=== PATIENT | male | born 1965 | race Caucasian/White ===

== ENCOUNTER 2016-12-10 14:36 | Emergency (ER) | payer BC ==
[~2016-12-10] VITALS: Ht 190.5 cm; Wt 119.9 kg
[~2016-12-10 14:36] MED LIST: CLC100 PO; FLX10 PO; OXYC-57 PO
[2016-12-10 14:42] VITALS: TEMP 36.9; Ht 190.5 cm; Wt 119.9 kg
[2016-12-10] MEDS ORDERED: MECLIZINE HCL 25 MG TAB PO STA (15:40)
[2016-12-10] MEDS ORDERED: INDO25CA14 PO (15:55)
[2016-12-10] MEDS ORDERED: CITA40TA4 PO (15:55)
[2016-12-10 16:28] LABS: ALT/SGPT 34 U/L (12-78); BLOOD UREA NITROGEN 12 mg/dl (7-18); BUN/CREATININE RATIO 15.1 (10-20); CALCIUM 9.6 mg/dl (8.5-10.1); CARBON DIOXIDE 27 mmol/L (21-32); CHLORIDE 102 mmol/L (98-107); GLUCOSE 129 mg/dl (70-99); POTASSIUM 3.7 mmol/L (3.5-5.1); SODIUM 140 mmol/L (136-145)
[2016-12-10 16:36] LABS: BASO % 0.3 %; BASO ABS # 0.02 K/uL (0-0.2); COMPLETE YES; EOS % 0.8 %; HEMATOCRIT 40.9 % (42-52); IG% 0.3 %; LYMPH % 26.2 %; LYMPH ABS # 1.63 K/uL (1.2-3.4); MEAN CELL VOLUME 85.6 fL (80-100); MEAN CORPUSCULAR HEMOGLOBIN 29.3 pg (25-34); MEAN CORPUSCULAR HGB CONC 34.2 g/dl (32-36); MEAN PLATELET VOLUME 10.5 fL (7.4-10.4); MONO % 4.8 %; NEUT % 67.6 %; PLATELET COUNT 224 K/uL (130-400); RED BLOOD COUNT 4.78 M/uL (4.7-6.1); WHITE BLOOD COUNT 6.21 K/uL (4.8-10.8)
[2016-12-10 16:38] LABS: ALB/GLOB RATIO 1.1 (0.9-2); ALKALINE PHOSPHATASE 60 U/L (45-117); AST/SGOT 20 U/L (15-37)
[2016-12-10] MEDS ORDERED: LORAZEPAM 1 MG TAB SL STA (17:01)
--- NOTE | 2016-12-10 17:12 | DIAGNOSTIC IMAGING REPORT ---
HEAD CT NONCONTRAST CT DOSE: 614.27 mGy.cm HISTORY: Mental status change dizziness TECHNIQUE: Multiaxial CT images of the head were performed without the use of intravenous contrast. Comparison: None. Findings: The paranasal sinuses and mastoid air cells are clear. The calvarium and skull base are intact. The ventricles and sulci are within normal limits. There is no mass, hematoma, midline shift, or acute infarct. Impression: No acute intracranial abnormality. Electronically signed by: Jose Musa M.D. 12/10/2016 5:10 PM Dictated Date/Time: 12/10/2016 5:08 PM
[2016-12-10 17:30] VITALS: O2SAT 95
[2016-12-10] MEDS ORDERED: MECL1TAB42 PO (18:39)
--- NOTE | 2016-12-10 18:40 | EMERGENCY ROOM VISIT NOTE ---
History First contact with patient: 15:29 Chief Complaint: DIZZY Stated Complaint: DIZZINESS,NAUSEA Nursing Triage Summary: Triage Note: Pt ambulatory to triage. Pt reports since waking up this am he has felt dizzy. History of Present Illness The patient is a 51 year old male who presents to the Emergency Room with complaints of dizziness. The patient states that after waking up this morning, he began to feel dizzy. He states his symptoms have been intermittent. They have been worse when he is standing or walking. He reports that he feels like the room is spinning and he has had nausea associated with this. He has not had any vomiting. The patient states that his blood pressure was elevated at home. He does have a history of hypertension, but does state that his blood pressure is "borderline." The patient reports a history of a neck surgery several years ago but denies any neck pain. He denies any headache, chest pain , shortness of breath. He denies any previous episodes of vertigo. The patient has not taken any medications for his symptoms. He denies any recent illnesses or fevers/chills. He denies any numbness, weakness or difficulty walking. Review of Systems A complete 10-point Review of Systems was discussed with the patient, with pertinent positives and negatives listed in the History of Present Illness. All remaining Review of Systems questions can be considered negative unless otherwise specified. Social History Smoking Status: Never Smoker Current/Historical Medications Scheduled Citalopram (Citalopram Hydrobromide), 40 MG PO DAILY Scheduled PRN Indomethacin (Indomethacin), 50 MG PO DAILY PRN for GOUT Meclizine Hcl (Meclizine Hcl), 1 TAB PO TID PRN for Dizziness or Vertigo Allergies Coded Allergies: Unclassified Drugs (Verified Allergy, Unknown, "VICRYL SUTURES" RXN = NON- HEALING WOUND, 09/05/10) Physical Exam Vital Signs Date Time Temp Pulse Resp B/P Pulse Ox O2 Delivery O2 Flow Rate FiO2 12/10/16 18:48 74 16 143/88 12/10/16 17:30 84 16 131/90 95 12/10/16 15:30 77 12 151/98 97 Room Air 12/10/16 14:42 36.9 66 18 184/121 95 Room Air Physical Exam VITALS: Vitals are noted on the nurse's note and reviewed by myself. Vital signs stable. GENERAL: This is a 51-year-old male, in no acute distress, nondiaphoretic, well- developed well-nourished. SKIN: The skin was without rashes. HEAD: Normocephalic atraumatic. EARS: External auditory canals clear, tympanic membranes pearly [place] without erythema or effusion bilaterally. EYES: Pupils equal round and reactive to light and accommodation. Conjunctivae without injection, sclerae without icterus. Extraocular movements intact. MOUTH: Mucous membranes moist. Tonsils are not enlarged. Pharynx without erythema or exudate. NECK: Supple without nuchal rigidity. No lymphadenopathy. HEART: Regular rate and rhythm without murmurs gallops or rubs. LUNGS: Clear to auscultation bilaterally without wheezes, rales or rhonchi. MUSCULOSKELETAL: Full range of motion throughout. Normal gait. Strength 5/5 throughout. NEURO: Patient was alert and oriented to person place and time. Normal sensation to light and sharp touch. Deep tendon reflexes 2+ throughout. No focal neurological deficits. Normal finger to nose testing. Normal rapid alternating movements. Negative Romberg and pronator drift. Medical Decision & Procedures ER Provider Diagnostic Interpretation: HEAD CT NONCONTRAST CT DOSE: 614.27 mGy.cm HISTORY: Mental status change dizziness TECHNIQUE: Multiaxial CT images of the head were performed without the use of intravenous contrast. Comparison: None. Findings: The paranasal sinuses and mastoid air cells are clear. The calvarium and skull base are intact. The ventricles and sulci are within normal limits. There is no mass, hematoma, midline shift, or acute infarct. Impression: No acute intracranial abnormality. Laboratory Results 12/10/16 16:00 Red Blood Count 4.78, Mean Corpuscular Volume 85.6, Mean Corpuscular Hemoglobin 29.3, Mean Corpuscular Hemoglobin Concent 34.2, Mean Platelet Volume 10.5, Neutrophils (%) (Auto) 67.6, Lymphocytes (%) (Auto) 26.2, Monocytes (%) (Auto) 4.8, Eosinophils (%) (Auto) 0.8, Basophils (%) (Auto) 0.3, Neutrophils # (Auto) 4.19, Lymphocytes # (Auto) 1.63, Monocytes # (Auto) 0.30, Eosinophils # (Auto) 0.05, Basophils # (Auto) 0.02 12/10/16 16:00 Test 3/20/17 16:00 White Blood Count 6.21 K/uL (4.8-10.8) Red Blood Count 4.78 M/uL (4.7-6.1) Hemoglobin 14.0 g/dL (14.0-18.0) Hematocrit 40.9 % (42-52) Mean Corpuscular Volume 85.6 fL (80-100) Mean Corpuscular Hemoglobin 29.3 pg (25-34) Mean Corpuscular Hemoglobin Concent 34.2 g/dl (32-36) Platelet Count 224 K/uL (130-400) Mean Platelet Volume 10.5 fL (7.4-10.4) Neutrophils (%) (Auto) 67.6 % Lymphocytes (%) (Auto) 26.2 % Monocytes (%) (Auto) 4.8 % Eosinophils (%) (Auto) 0.8 % Basophils (%) (Auto) 0.3 % Neutrophils # (Auto) 4.19 K/uL (1.4-6.5) Lymphocytes # (Auto) 1.63 K/uL (1.2-3.4) Monocytes # (Auto) 0.30 K/uL (0.11-0.59) Eosinophils # (Auto) 0.05 K/uL (0-0.5) Basophils # (Auto) 0.02 K/uL (0-0.2) RDW Standard Deviation 43.3 fL (36.4-46.3) RDW Coefficient of Variation 13.8 % (11.5-14.5) Immature Granulocyte % (Auto) 0.3 % Immature Granulocyte # (Auto) 0.02 K/uL (0.00-0.02) Anion Gap 11.0 mmol/L (3-11) Est Creatinine Clear Calc Drug Dose 154.2 ml/min Estimated GFR () 120.7 Estimated GFR (Non- 104.2 BUN/Creatinine Ratio 15.1 (10-20) Calcium Level 9.6 mg/dl (8.5-10.1) Total Bilirubin 0.8 mg/dl (0.2-1) Aspartate Amino Transf (AST/SGOT) 20 U/L (15-37) Alanine Aminotransferase (ALT/SGPT) 34 U/L (12-78) Alkaline Phosphatase 60 U/L (45-117) Troponin I < 0.015 ng/ml (0-0.045) Total Protein 7.7 gm/dl (6.4-8.2) Albumin 4.1 gm/dl (3.4-5.0) Globulin 3.6 gm/dl (2.5-4.0) Albumin/Globulin Ratio 1.1 (0.9-2) Thyroid Stimulating Hormone (TSH) 1.150 uIu/ml (0.300-4.500) Medications Administered Medications (Trade) Dose Ordered Sig/Aashish Route Start Time Stop Time Status Last Admin Dose Admin Meclizine HCl (Antivert Tab) 25 mg NOW STAT PO 12/10/16 15:40 12/10/16 15:43 DC 12/10/16 16:01 25 MG Lorazepam (Ativan Tab) 1 mg NOW STAT SL 12/10/16 17:01 12/10/16 17:02 DC 12/10/16 17:30 1 MG ECG Indication: other Rate (beats per minute): 73 Rhythm: normal sinus Findings: no acute ischemic change, no ectopy Change: no significant change Medical Decision Differential diagnosis includes labyrinthitis, BPPV, cerebellar lesion, CVA, among others. The patient was evaluated as above. Labs were drawn and IV access was obtained. Imaging studies were performed and read by radiology as above. The patient was medicated with 25 mg meclizine and 1 mg Ativan. The patient was reassessed multiple times during their stay in the emergency department and remained in stable condition. The patient is a 51-year-old male who presents today complaining of dizziness. He neurological exam was completely unremarkable. I do not suspect a central cause of vertigo. Labs revealed no leukocytosis, anemia or concerning electrolyte abnormalities. EKG was unremarkable. CT of the head was unremarkable. The patient was treated with meclizine with little relief. He did report some relief with the Ativan. The patient was able to walk without any balance issues. The patient was concerned that his dizziness would return and I did offer him admission for further evaluation, but he preferred to be discharged home. The patient was instructed that he should follow-up closely with his primary care provider. He'll return here for worsening of his symptoms. Based on the patient's presentation, lab results, and imaging studies, I feel the patient is stable for outpatient treatment. The patient's case was reviewed with Dr. Fernandez, ED attending physician, who agreed with my assessment and treatment plan. Discharge instructions were reviewed with the patient. The patient verbalized understanding of my assessment and treatment plan and was discharged home in good condition. Impression Primary Impression: Vertigo Departure Information Dispostion Home / Self-Care Condition GOOD Prescriptions Meclizine Hcl (MECLIZINE HCL) 25 Mg Tab 1 TAB PO TID Y for Dizziness or Vertigo for 10 Days, #30 TAB Prov: Maggy Willard .SANDI 12/10/16 Referrals Jesse Baker M.D. (PCP) Patient Instructions My [facility] Additional Instructions Take the meclizine 3 times daily as needed for dizziness. Rest and stay hydrated. No work until cleared by your primary care provider. Call your primary care provider tomorrow to schedule follow-up appointment within 48 hours. Return to the emergency department with worsening dizziness, headache, neck pain , fevers or any other new/concerning symptoms.
[2016-12-10 18:48] VITALS: BP 143/88; PULSE 74
[2017-02-25] MEDS ORDERED: MECL1TAB42 PO (10:05)
[2017-02-25] MEDS ORDERED: ALLO100T PO (10:05)
== END 2016-12-10 18:51 | disposition home or self-care (01) ==
LOC: C.EDB 14:37
DX: R42 Dizziness and giddiness (principal); I10 Essential (primary) hypertension; Z79.899 Other long term (current) drug therapy

== ENCOUNTER 2017-04-09 05:52 | Inpatient (IN) | payer BC ==
--- NOTE | 2017-02-25 10:37 | PAT Medication Instructions ---
Service Date Feb 25, 2017. Current Home Medication List Allopurinol (Zyloprim), 100 MG PO QAM Citalopram (Citalopram Hydrobromide), 40 MG PO QAM Meclizine Hcl (Meclizine Hcl), 1 TAB PO TID PRN for VERTIGO Medication Instructions For Your Scheduled Surgery - Take the following medications the morning of surgery with a sip of water OTHERWISE NOTHING TO EAT OR DRINK AFTER MIDNIGHT: Allopurinol (Zyloprim), 100 MG PO QAM Citalopram (Citalopram Hydrobromide), 40 MG PO QAM Meclizine Hcl (Meclizine Hcl), 1 TAB PO TID PRN for VERTIGO - Take the following medications as scheduled the night before surgery: Meclizine Hcl (Meclizine Hcl), 1 TAB PO TID PRN for VERTIGO If you have any questions please call us at [phone] or [phone] or [phone]
--- NOTE | 2017-02-25 11:10 | DIAGNOSTIC IMAGING REPORT ---
CHEST PREADMISSION(PA/LAT) CLINICAL HISTORY: Preoperative chest COMPARISON STUDY: No previous studies for comparison. FINDINGS: The cardiac and mediastinal contours are normal. There is no evidence of focal pulmonary consolidation. There is no evidence of failure. No pleural effusions are visualized.[ IMPRESSION: No active disease in the chest. Electronically signed by: Seng Garcia M.D. 02/25/2017 11:09 AM Dictated Date/Time: 02/25/2017 11:09 AM
[2017-02-25 12:03] LABS: URINE APPEARANCE CLEAR (CLEAR); URINE BILIRUBIN NEG (NEG); URINE COLOR DK YELLOW; URINE NITRITE NEG (NEG); URINE SPECIFIC GRAVITY 1.026 (1.000-1.030); UROBILINOGEN NEG (NEG); ZZUR CULT IF INDIC CLEAN CATCH NO
[2017-02-25 12:06] LABS: BASO % 0.2 %; BASO ABS # 0.01 K/uL (0-0.2); COMPLETE YES; EOS % 0.9 %; LYMPH % 27.8 %; LYMPH ABS # 1.26 K/uL (1.2-3.4); MEAN CELL VOLUME 88.2 fL (80-100); MEAN CORPUSCULAR HEMOGLOBIN 28.4 pg (25-34); MEAN CORPUSCULAR HGB CONC 32.1 g/dl (32-36); MEAN PLATELET VOLUME 10.4 fL (7.4-10.4); MONO % 4.8 %; NEUT % 66.3 %; PLATELET COUNT 202 K/uL (130-400); RED BLOOD COUNT 4.76 M/uL (4.7-6.1); WHITE BLOOD COUNT 4.54 K/uL (4.8-10.8)
[2017-02-25 12:14] LABS: MANUAL MICROSCOPIC REQUIRED? NO; REVIEW REQ? NO
[2017-02-25 12:18] LABS: ESTIMATED AVERAGE GLUCOSE 134 mg/dl; HA1C FLAG Normal (Normal)
[2017-02-25 12:20] LABS: BLOOD UREA NITROGEN 14 mg/dl (7-18); BUN/CREATININE RATIO 15.9 (10-20); CALCIUM 8.9 mg/dl (8.5-10.1); CARBON DIOXIDE 33 mmol/L (21-32); CHLORIDE 103 mmol/L (98-107); CREATININE 0.89 mg/dl (0.60-1.40); GLUCOSE 164 mg/dl (70-99); POTASSIUM 3.9 mmol/L (3.5-5.1); SODIUM 141 mmol/L (136-145)
[2017-03-06 16:08] VITALS: BMI 31.0
[2017-04-09] VITALS (8 sets, daily range): BP systolic 115–133; BP diastolic 61–84; PULSE 61–74; TEMP 36.5–37.3; O2SAT 92–98; Ht 190.5 cm; Wt 115.1 kg
[~2017-04-09] VITALS: Ht 190.5 cm; Wt 115.1 kg
[~2017-04-09 05:52] MED LIST changes: +ALLO100T PO; +CITA40TA4 PO; -CLC100 PO; -FLX10 PO; +MECL1TAB42 PO; -OXYC-57 PO
[2017-04-09] MEDS ORDERED: ROPIVACAINE 5MG/ML 30 ML 150 MG, BUPIVACAINE/EPINEPHR 0.5% MPF 30 ML, KETOROLAC TROMETH... INFIL SCH ×7 (06:00)
[2017-04-09] MEDS ORDERED: DEXAMETHASONE 4 MG TAB PO SCH (06:00)
[2017-04-09] MEDS ORDERED: METOCLOPRAMIDE HCL 10 MG TAB PO SCH (06:00)
[2017-04-09] MEDS ORDERED: LACTATED RINGER'S 1000ML 1,000 ML IV SCH (06:00)
[2017-04-09] MEDS ORDERED: FAMOTIDINE 20 MG TAB PO SCH (06:00)
[2017-04-09] MEDS ORDERED: CEFAZOLIN 2000 MG/60 ML D5W 60 ML IV SCH (06:00)
[2017-04-09] MEDS ORDERED: GABAPENTIN 300 MG CAP PO SCH (06:00)
[2017-04-09] MEDS ORDERED: LACTATED RINGER'S 1000ML 500 ML IV ONE (06:00)
[2017-04-09] MEDS ORDERED: ACETAMINOPHEN 500 MG TAB PO SCH (06:00)
[2017-04-09] MEDS ORDERED: LACTATED RINGER'S 1000ML IV SCH (06:00)
[2017-04-09] MEDS ORDERED: CeleBREX 200 MG CAP PO SCH (06:00)
[2017-04-09] MEDS: TRANEXAMIC ACID INJ 1,000 MG in SODIUM CHLORIDE 0.9% 100ML 100 ML IV SCH ×2 (06:30→07:14)
[2017-04-09] MEDS ORDERED: LIDOCAINE HCL 2% 2 ML VIAL (20MG/ML) ONE (06:49)
[2017-04-09] MEDS ORDERED: PROPOFOL IV EMULSION 10 MG/ML 20 ML VIAL IV ONE ×2 (06:49→08:58)
[2017-04-09] MEDS ORDERED: FENTANYL CITRATE INJ 50 MCG/1 ML 2 ML VIAL ONE (06:50)
[2017-04-09] MEDS ORDERED: MIDAZOLAM HCL 1 MG/ML 2ML VIAL ONE ×2 (06:50→08:31)
--- NOTE | 2017-04-09 06:51 | History & Physical Bridge Note ---
H&P Re-Evaluation Bridge Note: I have examined the patient, reviewed the History & Physical and in the interval since the performance of the History & Physical I have noted the following changes of clinical significance: No changes noted
[2017-04-09 06:59] LABS: INR 0.9 (0.9-1.1); PROTHROMBIN TIME (PATIENT) 9.8 SECONDS (9.0-12.0)
[2017-04-09] MEDS ORDERED: BACITRACIN 50000 UNIT VIAL ONE (07:11)
[2017-04-09] MEDS ORDERED: POVIDONE-IODINE OP SOLN 30 ML BTL ONE (07:11)
[2017-04-09] MEDS ORDERED: ORTHO JOINT ANESTHETIC ONE (07:11)
--- NOTE | 2017-04-09 07:14 | History and Physical ---
History & Physical Date of Service Apr 09, 2017. History & Physical Chief Complaint right knee pain History of Present Illness Mr Garcia is a 51 year old male who complains of right knee pain. He presents with pain on the right side. He states that the symptoms have been chronic non- traumatic. The symptoms occur constantly with intermittent worsening. The problem is fluctuating. Currently the patient states that the symptoms are moderate. The pain is described as aching and throbbing. The symptoms occur intermittently. The symptoms are aggravated by daily activities. Gerard states that the symptoms are relieved by no specific activity. In addition to right knee pain the patient is also experiencing crepitus, decreased mobility and limping. The patient has had a previous x-ray. Prior NSAIDs include Has taken Mobic in the past. Patient has had arthroscopic surgery. 04-07-15 Dr. Alberts performed Arthroscopy, right knee Partial medial meniscectomy, Partial lateral meniscectomy, Chondroplasty medial femoral condyle and patellofemoral joint. Has had previous cortisone injection without relief. Past Medical/Surgical History Past Medical History 1. Anxiety 2. Sleep Apnea 3. Gout Past Surgical History 1. right knee scope 2. achilles tendon 3. ulnar nerve transposition 4. back surgery Additional History Hepatic Disease: No Endocrine Disorder: No Hypertension: No Heart Disease: No Bleeding Tendencies: No Allergies Coded Allergies: NO KNOWN DRUG ALLERGIES (Verified Allergy, Unknown, NKDA, 02/25/17) Unclassified Drugs (Verified Allergy, Unknown, "VICRYL SUTURES" RXN = NON- HEALING WOUND, 02/25/17) Home Medications Scheduled Allopurinol (Zyloprim), 100 MG PO QAM Citalopram (Citalopram Hydrobromide), 40 MG PO QAM Scheduled PRN Meclizine Hcl (Meclizine Hcl), 1 TAB PO TID PRN for VERTIGO Physical Examination Skin: warm/dry, no rash Eyes: normal inspection, EOMI, sclerae normal ENT: normal ENT inspection, pharynx normal Head: normocephalic, atraumatic Neck: supple, no adenopathy, trachea midline Respiratory/Chest: lungs clear, normal breath sounds, no respiratory distress Cardiovascular: regular rate, rhythm, no edema, no murmur Abdomen / GI: normal bowel sounds, non tender Addiitonal Comments: Right Knee Ankle ROM R * Active ROM - Factors: normal, Description: active pain free range of motion. Passive ROM - Factors: normal, Description: passive pain free range of motion. Hip ROM R * Active ROM - Factors: normal, Description: active pain free range of motion. Passive ROM - Factors: normal, Description: passive pain free range of motion. Knee ROM R * Active ROM - Flexion: 100 degrees, Extension: 5 degrees, Factors: pain, Description: Active painful ROM. Strength LE Normal Strength Description - Normal lower extremity: Bilateral. Knee * Inspection - Gait: Limp. Alignment - Right: varus, Clinical. Ecchymosis - Right: negative. Effusion - Right: mild. Skin - Right: surgical scars. Swelling - Right: mild. Maximum tenderness - Right: Medial Joint Line. Patella exam - Crepitation - Right: mild. Patella position - Right: neutral. Knee Normal Inspection - Atrophy - Right: Absent. Patella exam - Apprehension - Right: Negative. Q-angle - Right: Normal. Posterior drawer - Right: Negative. Anterior drawer - Right: Negative. Valgus stress - Right: Negative. Varus stress - Right: Negative. Extensor lag - Right: Normal. Neurovascular LE Normal Neurovascular examination including reflexes, sensation , and pulses is within normal limits. Right Knee Xray: Xrays reviewed of the right knee showing findings consistent with degenerative joint disease including joint space narrowing, subchondral sclerosis and peripheral osteophyte formation. no acute bony pathology, overall varus alignment. Impression: degenerative joint disease of the right knee with no acute bony pathology noted. Diagnosis Right Knee DJD -Further care discussed with patient and at this point in time has failed conservative measures and would like to proceed with a right total knee replacement. Plan on discharge will be home with home health physical therapy. DVT prophalaxis with TEDs, SCDs and will also place on aspirin 81 mg p.o. b.i.d. for a month postop. Patient will have follow up appointment in our office two weeks post op for staple/suture removal and re-evaluation. Patient otherwise has no other questions or concerns.
[2017-04-09] MEDS ORDERED: BUPIVACAINE 0.5 % 5 MG/1 ML PF 10ML VIAL ONE (07:15)
[2017-04-09] MEDS ORDERED: BUPIVACAINE 0.25% 30 ML VIAL ONE (07:15)
[2017-04-09] MEDS ORDERED: PHENYLEPHRINE 100MCG/ML 5ML SYR IV PRN (08:30)
[2017-04-09] MEDS ORDERED: ONDANSETRON INJ 2 MG/ML 2 ML VIAL IV PRN ×2 (08:30→10:15)
[2017-04-09] MEDS ORDERED: HYDROmorphone INJ 2 MG/ML SYR/VIAL IV PRN (08:30)
[2017-04-09] MEDS ORDERED: ATROPINE SULFATE 0.1 MG/ML 5ML SYR IV PRN (08:30)
[2017-04-09] MEDS ORDERED: KETOROLAC TROMETHAMINE 30 MG/ML VIAL IV. PRN ×2 (08:30→10:15)
[2017-04-09] MEDS ORDERED: EpHEDrine SULFATE INJ 50 MG/ML AMP IV PRN (08:30)
--- NOTE | 2017-04-09 09:26 | [facility] Operative Report ---
Operative Report Operative Date Apr 09, 2017. Pre-Operative Diagnosis Right Knee Degenerative Joint Disease Post-Operative Diagnosis Right Knee Degenerative Joint Disease Procedure(s) Performed Right Total Knee Arthroplasty, Cemented Wade nephew journey to en bloc size 8 femur A tibia 13 poly-[address] Alberts Website Developer Surgeon(s) Jimmy Ruff PA-C Findings Severe end-stage DJD right knee Specimens A: Right Knee Bone and Tissue Complication(s) None Disposition Recovery Room / PACU Indications Severe end-stage DJD not responsive to conservative management including physical therapy bracing and injections. Description of Procedure After proper prepping and draping of the Right lower extremity anterior midline incision was made over the region of the extensor extensor mechanism after meticulous hemostasis was obtained and maintained in subcutaneous tissues a medial parapatellar incision was made The patella was subluxed lateralward the medial lateral gutter were cleaned from any hypertrophic synovitis and scar tissue of the distal femoral block was placed and the distal femoral osteotomy cut was made subsequently the chamfers anterior and posterior osteotomy cuts were made utilizing the 4-in-1 block the tibia was subsequently subluxed anteriorward medial and ateral meniscal remnants were excised in their entirety remnants of the anterior and posterior cruciate ligaments were excised in their entirety excellent exposure of the proximal tibia was obtained the tibial osteotomy guide was placed on the proximal tibial osteotomy cut was made once again the knee was irrigated with copious amounts of sterile saline solution the patella was subsequently everted lateralward thickened scar tissue around the patella was removed the patella was subsequently cut utilizing a freehand technique and was drilled prepared for final preparation and placement of patella socially flexion-extension gaps were checked and the equal and symmetric trials were placed to the appropriate femoral and tibial trials with poly-spacer being placed for equal flexion and extension gaps and full range of motion including extension to 0 and flexion to 140 the trial components after having been taken to recovery range of motion was subsequently removed meticulous hemostasis was obtained and maintained subsequently a knee block injection of joint cocktail including ropivacaine 0.5% 150 mg. Bupivacaine 0.5 % epinephrine 1-200,030 mL's toradol 30 mg dexamethasone 4 mg ketamine 10 mg clonidine 100 micrograms normal saline solution 30 mg was infiltrated into the soft tissues of the posterior knee medial lateral gutters and periosteal synovium special attention was paid to protect neurovascular structures at all times subsequently trial components having been removed the knee was irrigated with sterile saline solution. debris was removed the proximal tibia was subsequently prepared and was made ready for the placement of the tibial component tibial component was also cemented and tamped into position the femoral component was subsequently placed and cemented in the position the patellar component was subsequently cemented in position because hemostasis once again obtained and maintained wound having been thoroughly irrigated with debridement and debridement lavage was performed as well as a medial parapatellar incision closed with #1 Vicryl in interrupted fashion subcutaneous was closed with #2 Vicryl skin was closed with skin clips. PA-C was necessary for prepping and drapping as well as wound closure of deep fascia Sub cutaneous tissue and skin and was necessary for the case. A sterile compressive dressing was placed patient was taken to recovery in stable condition of report dictated by Aristeo I attest to the content of the Intraoperative Record and any orders documented therein. Any exceptions are noted below. I attest to the content of the Intraoperative Record and any orders documented therein. Any exceptions are noted below.
[2017-04-09] MEDS ORDERED: BISACODYL 10 MG SUPP PR PRN (10:15)
[2017-04-09] MEDS ORDERED: MoRPHine SULFATE 2 MG/ML CARP IV PRN (10:15)
[2017-04-09] MEDS ORDERED: ALUMINUM/MAGNESIUM/SIMETH (MAALOX MAX) 30 ML UDC PO PRN (10:15)
[2017-04-09] MEDS ORDERED: MAGNESIUM HYDROXIDE SUSP 30 ML UDC PO PRN (10:15)
[2017-04-09] MEDS ORDERED: TAMSULOSIN HCL 0.4 MG CAP PO PRN (10:15)
[2017-04-09] MEDS ORDERED: OXYCODONE HCL IR 5 MG TAB (IMMEDIATE RELEASE) PO PRN (10:15)
--- NOTE | 2017-04-09 10:37 | DIAGNOSTIC IMAGING REPORT ---
RIGHT KNEE 1 OR 2 VIEWS ROUTINE CLINICAL HISTORY: 51 years-old Male presenting with postsurgical right knee. TECHNIQUE: Frontal and lateral views of the right knee were obtained. COMPARISON: None. FINDINGS: Total right knee arthroplasty with patellar resurfacing. Gas noted within the joint and soft tissues, expected postsurgical findings. Skin lien and surgical drains noted. No apparent hardware convocation. No acute fracture or malalignment. IMPRESSION: 1. Expected postoperative findings status post total right knee arthroplasty. Electronically signed by: Timoteo Ramires M.D. 04/09/2017 10:36 AM Dictated Date/Time: 04/09/2017 10:34 AM
--- NOTE | 2017-04-09 10:51 | Anesthesiology Progress Note ---
Anesthesia Post Op Note Date & Time Apr 09, 2017 at 10:50 Vital Signs Pain Intensity: 0 Vital Signs Past 12 Hours Date Time Temp Pulse Resp B/P (MAP) Pulse Ox O2 Delivery O2 Flow Rate FiO2 04/09/17 10:46 127/67 04/09/17 10:43 58 16 04/09/17 10:43 58 16 92 04/09/17 10:42 106/67 04/09/17 10:38 61 12 04/09/17 10:38 63 12 96 04/09/17 10:37 101/63 04/09/17 10:36 36.6 04/09/17 10:33 64 15 96 04/09/17 10:33 63 15 04/09/17 10:32 105/62 04/09/17 10:30 63 12 97 04/09/17 10:30 63 12 04/09/17 10:27 101/60 04/09/17 10:25 59 16 92 04/09/17 10:25 60 16 04/09/17 10:24 62 21 94 04/09/17 10:24 61 21 04/09/17 10:22 105/62 04/09/17 10:19 66 14 04/09/17 10:19 66 14 93 04/09/17 10:17 109/54 04/09/17 10:14 68 15 04/09/17 10:14 68 15 94 04/09/17 10:12 117/58 04/09/17 10:10 112/52 04/09/17 10:09 72 16 92 04/09/17 10:09 72 16 04/09/17 10:09 36.2 72 16 112/52 96 Nasal Cannula 3 04/09/17 06:38 37.3 67 20 124/84 96 Room Air Notes Mental Status: alert / awake / arousable, participated in evaluation Pt Amnestic to Procedure: Yes Nausea / Vomiting: adequately controlled Pain: adequately controlled Airway Patency, RR, SpO2: stable & adequate BP & HR: stable & adequate Hydration State: stable & adequate Anesthetic Complications: no major complications apparent
[2017-04-09] MEDS ORDERED: MoRPHine SULFATE 10 MG/ML CARP/VIAL IV PRN (12:00)
[2017-04-09] MEDS ORDERED: MoRPHine SULFATE 4 MG/ML 1 ML CARP\\VIAL IV PRN (12:00)
[2017-04-09] MEDS: D5W AND 1/2NSS + 20MEQ KCL 1,000 ML IV SCH ×2 (12:16→20:49)
[2017-04-09] MEDS: ACETAMINOPHEN 500 MG TAB PO SCH ×2 (14:08→20:48)
[2017-04-09] MEDS: CEFAZOLIN IV 2,000 MG in DEXTROSE 5% 50ML 50 ML IV SCH (15:54)
[2017-04-09] MEDS: FERROUS GLUCONATE 324 MG TAB PO SCH (17:23)
[2017-04-09] MEDS: OXYCODONE HCL 10 MG TABCR (OXYCONTIN) PO SCH (20:38)
[2017-04-09] MEDS: DOCUSATE SODIUM 100 MG CAP PO SCH (20:39)
[2017-04-09] MEDS: ASPIRIN 81 MG ECTAB PO SCH (20:39)
[2017-04-09] MEDS ORDERED: SENNA 8.6 MG TAB PO SCH (21:00)
[2017-04-10] VITALS (7 sets, daily range): BP systolic 113–138; BP diastolic 57–92; PULSE 56–71; TEMP 36.4–36.7; O2SAT 93–96
[2017-04-10] MEDS: CEFAZOLIN IV 2,000 MG in DEXTROSE 5% 50ML 50 ML IV SCH (00:24)
[2017-04-10] MEDS: ACETAMINOPHEN 500 MG TAB PO SCH ×2 (05:22→14:02)
[2017-04-10 06:09] LABS: HEMATOCRIT 33.3 % (42-52); MEAN CELL VOLUME 87.6 fL (80-100); MEAN CORPUSCULAR HEMOGLOBIN 28.4 pg (25-34); MEAN CORPUSCULAR HGB CONC 32.4 g/dl (32-36); MEAN PLATELET VOLUME 10.3 fL (7.4-10.4); PLATELET COUNT 181 K/uL (130-400); WHITE BLOOD COUNT 9.15 K/uL (4.8-10.8)
[2017-04-10 06:42] LABS: BUN/CREATININE RATIO 15.5 (10-20); CALCIUM 8.4 mg/dl (8.5-10.1); CREATININE 0.92 mg/dl (0.60-1.40)
--- NOTE | 2017-04-10 07:01 | Orthopedic Progress Note ---
Orthopedic Progress Note Date of Service Apr 10, 2017. Subjective Post OP Day: 1 (s/p Right TKA) Reports: feeling well, pain controlled w PO medications, Denies: complaints, chest pain, SOB, nausea / vomiting, light headedness, calf pain Objective calves soft nontender, N/V intact, capillary refill less than 2 sec., dressing C /D/I, A&O x3, toes mobile, hemovac drainage (275cc/8 hours) Date Time Temp Pulse Resp B/P (MAP) Pulse Ox O2 Delivery O2 Flow Rate FiO2 04/10/17 03:42 36.4 56 16 134/92 (106) 96 Room Air 04/10/17 00:26 Room Air 04/10/17 00:01 36.7 69 17 113/57 (75) 93 Room Air 04/09/17 19:23 36.7 64 16 133/76 (95) 95 Room Air 04/09/17 15:50 Room Air 04/09/17 15:12 36.8 70 18 115/61 (79) 98 Nasal Cannula 2.0 04/09/17 13:53 74 16 121/69 (86) 93 Nasal Cannula 2.0 04/09/17 12:54 74 18 127/69 (88) 96 Nasal Cannula 2.0 04/09/17 11:53 61 16 118/68 (85) 96 Nasal Cannula 2.0 04/09/17 11:25 36.5 65 18 125/71 (89) 98 Nasal Cannula 2.0 04/09/17 10:55 92 Nasal Cannula 2.0 04/09/17 10:55 36.5 62 18 123/74 (90) 92 Nasal Cannula 2.0 04/09/17 10:55 92 Nasal Cannula 2.0 04/09/17 10:46 127/67 04/09/17 10:43 58 16 04/09/17 10:43 58 16 92 04/09/17 10:42 106/67 04/09/17 10:38 61 12 04/09/17 10:38 63 12 96 04/09/17 10:37 101/63 04/09/17 10:36 36.6 04/09/17 10:33 64 15 96 04/09/17 10:33 63 15 04/09/17 10:32 105/62 04/09/17 10:30 63 12 97 04/09/17 10:30 63 12 04/09/17 10:27 101/60 04/09/17 10:25 59 16 92 04/09/17 10:25 60 16 04/09/17 10:24 62 21 94 04/09/17 10:24 61 21 04/09/17 10:22 105/62 04/09/17 10:19 66 14 04/09/17 10:19 66 14 93 04/09/17 10:17 109/54 04/09/17 10:14 68 15 04/09/17 10:14 68 15 94 04/09/17 10:12 117/58 04/09/17 10:10 112/52 04/09/17 10:09 72 16 92 04/09/17 10:09 72 16 04/09/17 10:09 36.2 72 16 112/52 96 Nasal Cannula 3 Laboratory Results 24 Hours: Test 04/10/17 05:32 Hematocrit 33.3 % Hemoglobin 10.8 g/dL Assessment & Plan Assessment: POD #1 s/p Right TKA -pt/ot -dvt proph with natalya/scd/asa -will recheck drain output later today, poss d/c today if doing well 1. Anxiety 2. Sleep Apnea 3. Gout Discharge Planning Discharge Planning: home with home health DVT Prophylaxis: TEDs, SCDs, ASA Therapy: Physical Therapy
--- NOTE | 2017-04-10 07:57 | Anesthesiology Progress Note ---
Anesthesia Post Op Note Date & Time Apr 10, 2017 at 07:57 Vital Signs Pain Intensity: 0.0 Vital Signs Past 12 Hours Date Time Temp Pulse Resp B/P (MAP) Pulse Ox O2 Delivery O2 Flow Rate FiO2 04/10/17 07:00 Room Air 04/10/17 03:42 36.4 56 16 134/92 (106) 96 Room Air 04/10/17 00:26 Room Air 04/10/17 00:01 36.7 69 17 113/57 (75) 93 Room Air Notes Mental Status: alert / awake / arousable, participated in evaluation Pt Amnestic to Procedure: Yes Nausea / Vomiting: adequately controlled Pain: adequately controlled Airway Patency, RR, SpO2: stable & adequate BP & HR: stable & adequate Hydration State: stable & adequate Anesthetic Complications: no major complications apparent
[2017-04-10] MEDS: DOCUSATE SODIUM 100 MG CAP PO SCH (08:55)
[2017-04-10] MEDS: ASPIRIN 81 MG ECTAB PO SCH (08:56)
[2017-04-10] MEDS: FERROUS GLUCONATE 324 MG TAB PO SCH ×2 (08:57→12:43)
[2017-04-10] MEDS ORDERED: ALLOPURINOL 100 MG TAB PO SCH (09:00)
[2017-04-10] MEDS: OXYCODONE HCL 10 MG TABCR (OXYCONTIN) PO SCH (09:00)
[2017-04-10] MEDS ORDERED: MULTIVITAMIN TAB PO SCH (09:00)
[2017-04-10] MEDS ORDERED: CITALOPRAM 40 MG TAB PO SCH (09:00)
[2017-04-10] MEDS ORDERED: PANTOprazole SOD 40 MG TAB PO SCH (09:00)
--- NOTE | 2017-04-10 14:07 | Discharge Instructions ---
Discharge Instructions Date of Service Apr 10, 2017. Admission Reason for Admission: Right Knee Osteoarthritis Discharge Discharge Diagnosis / Problem: Right Total Knee Replacement Discharge Goals Goal(s): Decrease discomfort, Improve function, Increase independence Activity Recommendations Activity Limitations: as noted below Weightbearing Status: Right weightbearing (as tolerated) . Instructions / Follow-Up Instructions / Follow-Up ACTIVITY RECOMMENDATIONS: SELF CARE INSTRUCTIONS AFTER TOTAL KNEE REPLACEMENT A. You may need to continue a physical therapy program after discharge from the hospital. There are several options available to you. Your doctor will assist you in selecting the best one for you. 1. An out-patient facility 2 to 3 times a week for therapy or home therapy. 2. Continue working on all exercises taught to you in the hospital. Your goals should be to increase bending of your knee to 90 degrees and beyond and to fully straighten your knee. B. You may progress at your own pace from walking with a walker or crutches to a cane; then to no assistive devices. C. Make walking a part of your daily routine. Be up as much as comfortable with rest periods throughout the day. Rest with leg elevation is very important. Use the ice wrap frequently for the first 3-4 weeks. D. There are no restrictions on activities. You may ride in a car, shop, participate in grape picker and all social activities. E. Wear the long elastic stockings (JF hose) 20 hours a day for 2 weeks after surgery. They can be removed several times a day for laundering and for a bath. F. You may shower, no tub baths until cleared by your doctor. SPECIAL CARE INSTRUCTIONS: VERY IMPORTANT TO READ AND REVIEW A. There are a few signs you need to watch for after you are home. Call [facility] if you notice any of the followin. Increased severe knee pain. Some pain is expected especially when you exercise. 2. Increased swelling in your leg or knee; pain or swelling of the calf muscle in either lower leg. 3. Any fluid drainage from the incision. 4. Shortness of breath or chest pain. B. Please call [facility] at if you have any concerns or questions about your operation or recovery. The doctor or his nurse will return your call promptly. C. You must take antibiotics before dental work, bladder, bowel or other surgery. Your doctor will provide you with a permanent care to carry describing this precaution. IMPORTANT: * REMEMBER TO TAKE ASPIRIN, 81 MG, TWICE DAILY FOR 4 WEEKS UNLESS OTHERWISE DIRECTED. THIS IS YOUR BLOOD THINNER. * HIGH RISK PATIENTS MAY BE PRESCRIBED A STRONGER BLOOD THINNER. THIS WILL BE PROVIDED AT DISCHARGE. * CALL IF INCREASED PAIN, REDNESS, DRAINAGE OR FEVER GREATER THAT 101. * WEAR JF HOSE 20 HOURS PER DAY FOR 2 WEEKS. * YOU MAY HAVE A LARGE BAND-AID LIKE DRESSING (SILVERON). THIS WILL REMAIN ON YOUR INCISION FOR 7 DAYS, THEN CAN BE REMOVED. IF INCISION IS LEAKING THROUGH DRESSING, CALL THE OFFICE . * WILL HAVE [employer] REMOVE DRAIN ON 04/11/17 AT HOME. FOLLOW UP VISIT: If appointment is not already scheduled: Please call [facility] to make a follow-up appointment for 2 weeks after your surgery at . Current Hospital Diet Patient's current hospital diet: Regular Diet Discharge Diet Recommended Diet: Regular Diet Procedures Procedures Performed: Right Total Knee Arthroplasty, Cemented Wade nephew journey to en bloc size 8 femur A tibia 13 poly-38 patella oval Pending Studies Studies pending at discharge: no Laboratory Results Hemoglobin A1c Test 02/25/17 10:43 Range/Units Estimated Average Glucose 134 mg/dl Hemoglobin A1c 6.3 H 4.5-5.6 % Medical Emergencies . Who to Call and When: Medical Emergencies: If at any time you feel your situation is an emergency, please call 911 immediately. . Non-Emergent Contact Non-Emergency issues call your: Primary Care Provider, Surgeon . "Provider Documentation" section prepared by Jose Jolley. . VTE Core Measure Inpt VTE Proph given/why not?: Other Anticoagulation (ASA 81mg po bid x 1 month ), T.E.DKeny Melgar, SCD's [place] Drug Monitoring Program Search Results: patient reviewed within database, no issues identified
[2017-04-10] MEDS ORDERED: CLC100 PO (14:11)
[2017-04-10] MEDS ORDERED: HYDR-3983 PO (14:11)
[2017-04-10] MEDS ORDERED: ASPEC81 PO (14:11)
[2017-04-10] MEDS ORDERED: ONDA8TAB6 PO (14:11)
[2017-04-10] MEDS ORDERED: OXYSR10 PO (14:11)
--- NOTE | 2017-04-12 09:06 | Discharge Summary ---
Orthopedic Discharge Summary Admission Date/Reason Apr 09, 2017 at 10:14 Right Knee Osteoarthritis. Discharge Date/Disposition Apr 10, 2017 Home with services Diagnosis Principal Diagnosis: Right Knee Djd Secondary Diagnoses/Problems: 1. Anxiety 2. Sleep Apnea 3. Gout Procedure(s) Performed Right TKA Medication Reconciliation New Medications: Hydrocodone/Acetaminophen 7.5MG/325MG ([place] 7.5MG/325MG) Tab 1-2 TABS PO q4-6 hours PRN for Pain, #90 TAB Ondansetron Hcl (Zofran) 8 Mg Tab 8 MG PO Q8 PRN for Nausea, #20 TAB Aspirin (Aspirin EC Low Dose) 81 Mg Ectab 81 MG PO BID for 30 Days, #60 TAB Docusate Sodium (Docusate Sodium) 100 Mg Cap 100 MG PO BID for 10 Days, #20 CAP Oxycodone HCl (Oxycontin) 10 Mg Tabcr 10 MG PO Q12, #20 Continued Medications: Allopurinol (Zyloprim) 100 Mg Tab 100 MG PO QAM, TAB Citalopram (Citalopram Hydrobromide) 40 Mg Tab 40 MG PO QAM, TAB 3 Refills Meclizine Hcl (Meclizine Hcl) 25 Mg Tab 1 TAB PO TID PRN for VERTIGO for 10 Days, #30 TAB Admission Physical Exam As per Admitting History & Physical. Hospital Course The Patient had an uneventful hospital course. Labs remained stable- lowest hemoglobin recorded: 10.8 . Pain controlled on oral medications. Participated in PT with ambulation distance of 800 feet. ROM of operative knee reached 111 degrees. Drainage output totaled 1170 cc prior to discontinuation. Patient did not have a reported bowel movement. Incision remained clean/dry/intact. DVT prophylaxis with Aspirin EC 81mg BID x 30 days/Greg stockings. Patient discharged home with Home Health Services in stable condition. Please refer to daily progress notes for further details. Discharge Instructions Please refer to the electronic Patient Visit Report (Discharge Instructions) for additional information.
== END 2017-04-10 15:13 | disposition home health service (06) | DRG 470 ==
LOC: C.ACU 05:52 → C.3E 10:14 → ENRESERV 10:34
PROVIDERS: ADMIT Orthopaedic Surgery; ATTEND Orthopaedic Surgery
PROC: 0SRC0J9 Replacement of Right Knee Joint with Synthetic Substitute, Cemented, Open Approach (ICD-10-PCS; principal; 2017-04-09 08:00)
DX: M17.11 Unilateral primary osteoarthritis, right knee (principal); G47.30 Sleep apnea, unspecified; M1A.9XX0 Chronic gout, unspecified, without tophus (tophi)